=== PATIENT | female | born 1965 | race African-American/Black ===

== ENCOUNTER 2017-12-10 11:25 | Emergency (ER) | payer OTHER ==
[~2017-12-10] VITALS: Ht 165.1 cm; Wt 64.4 kg
[2017-12-10] MEDS ORDERED: ATRIPLA1 TAB ORAL (11:33)
[2017-12-10] MEDS ORDERED: LAMIVUDINE150 MG ORAL (11:33)
[2017-12-10] MEDS ORDERED: VIREAD150 MG PO (11:33)
[2017-12-10 11:40] VITALS: BP 171/90
[2017-12-10 11:50] VITALS: BP 171/90
--- NOTE | 2017-12-10 13:33 | Emergency Room Report ---
History of Present Illness General Chief Complaint: General Complaint Source: Patient Present Illness HPI Patient 52-year-old female who presented for requested adjustment of HIV meds. The patient states she was diagnosed pressure 1 year ago. She denies any current complaints. Patient states that she wanted her viral load check. She denied any fever or weakness. Allergies: Coded Allergies: No Known Allergies (Unverified , 12/10/17) Patient History Past Medical History: see triage record Now: No Reviewed Nursing Documentation: PMH: Agreed; PSxH: Agreed Nursing Documentation-PMH Past Medical History: No Stated History Review of Systems All Other Systems: negative except mentioned in HPI Physical Exam Vital Signs Date Time Temp Pulse Resp B/P (MAP) Pulse Ox O2 Delivery O2 Flow Rate FiO2 12/10/17 11:27 98.2 89 18 171/90 98 Room Air 98.2 General Appearance: well appearing, no apparent distress, alert, GCS 15, non- toxic Head: normocephalic, atraumatic ENT: hearing grossly normal, normal voice Neck: full range of motion, supple Respiratory: no respiratory distress, speaking full sentences Musculoskeletal: no calf tenderness Neurologic: normal gait Psychiatric: mood/affect normal Skin: no rash Medical Decision Making Diagnostic Impression: Primary Impression: HIV disease ER Course The patient presented for the HIV. The patient was advised that she would need to see infectious disease specialist as an outpatient to have HIV medications changed and adjusted. The patient was given outpatient referrals. Last Vital Signs Date Time Temp Pulse Resp B/P (MAP) Pulse Ox O2 Delivery O2 Flow Rate FiO2 12/10/17 11:50 98.2 89 18 171/90 98 Room Air 98.2 Status: improved Disposition: HOME, SELF-CARE Condition: Stable Referrals: NOT CHOSEN IPA/,REFERRING (PCP) Patient Instructions: HIV Antibody Test Additional Instructions: Follow up with infectious disease specialist Westley Antonio MD Dec 10, 2017 13:33
== END 2017-12-10 12:00 | disposition home or self-care (01) ==
LOC: EMR 11:51
DX: B20 Human immunodeficiency virus [HIV] disease (principal)
CPT/HCPCS: 99282

== ENCOUNTER 2019-06-07 13:36 | Emergency (ER) | payer OTHER ==
[~2019-06-07] VITALS: Ht 177.8 cm; Wt 90.7 kg
[~2019-06-07 13:36] MED LIST: ATRIPLA1 TAB ORAL; LAMIVUDINE150 MG ORAL; VIREAD150 MG PO
--- NOTE | 2019-06-07 13:47 | NUR ---
ED Nurse Note: Pt brought in by ambulance for pain and SOB since last night. Pt has not history and takes no meds. TT 40, PA aware. Pt is alerta nd orientedx4, but slow speech due to SOB. Pt set up on monitor.
--- NOTE | 2019-06-07 13:50 | NUR ---
ED Nurse Note: PA aware that RR 39 and pt HR is 120.
--- NOTE | 2019-06-07 14:19 | NUR ---
ED Nurse Note: Pt states she has had CP since last night 1999 L side of chest sharp abnd radiating to L shoulder.
--- NOTE | 2019-06-07 14:19 | Emergency Room Report ---
History of Present Illness General Chief Complaint: General Complaint Source: Patient Present Illness HPI Disclaimer: Please note that this report is being documented using DRAGON technology. This can lead to erroneous entry secondary to incorrect interpretation by the dictating instrument. HPI: 53-year-old female presents for evaluation of chest pain shortness of breath. Symptoms began last night. She was awoken from sleep complaining of left-sided chest pain discomfort associated with shortness of breath. Pain was nonradiating. Notes worsening pain when laying on the right side though while at rest the pain is on the left. No prior history of PR. Denies any other medical issues. Has been isolating at home for the past 2 weeks with her children. No recent travel. Denies fever, chills, cough, vomiting, diarrhea. PMH: HIV PSH: Denies Allergies: Denies Social Hx: Non-smoker Allergies: Coded Allergies: No Known Allergies (Unverified , 12/10/17) COVID-19 Screening Contact w/high risk pt: No Recent Travel to affected area: No Experienced COVID-19 symptoms?: No Nursing Documentation-PMH Past Medical History: No Stated History Review of Systems All Other Systems: negative except mentioned in HPI Physical Exam Vital Signs Date Time Temp Pulse Resp B/P (MAP) Pulse Ox O2 Delivery O2 Flow Rate FiO2 06/07/19 13:30 98.8 100 22 93/65 (74) 98 Room Air General: Awake and alert, anxious appearing HEENT: NC/AT. EOMI. Cardiovascular: Tachycardic S1 and S2 normal. No murmur appreciated Resp: Tachypnea. Normal work of breathing. No cough, wheezing or crackles appreciated Abdomen: Abdomen is soft, nondistended. Nontender Skin: Intact. No abrasions, laceration or rash over the exposed skin MSK: Normal tone and bulk. Moving all extremities. No obvious deformity. Neuro: Awake and alert. Mentating appropriately. Procedures Critical Care Time Critical Care Time Total critical care time: Approximately 45 minutes Due to a high probability of clinically significant, life threatening deterioration, the patient required the highest level of preparedness to intervene emergently and I personally spent this critical care time directly and personally managing the patient. This critical care time included obtaining a history, examining the patient, pulse oximetry, ordering and reviewing studies , ordering treatments, evaluating response to treatment and updating management plan as needed, frequent reassessment and discussion with other providers as well as arranging for ultimate disposition. This critical to care time was performed to assess and manage the high probability of life-threatening deterioration that could result in multiorgan failure. This critical care time is separate from the separately billable procedures and treating other patients. Central Line Central Line : Consent: Emergent Central Line Lumen: triple No Max Barrier Tech Because: emergency insertion Central Line Postion: femoral (R) Complications: none Central Line Post Position: sutured Attempts: One Patient Tolerated: Well Complications: None CPR/Code Blue CPR/Code Blue Narrative See reevaluation section of note for full details. Intubation Intubation : Consent: Emergent Intubation Method: orotracheal Tube Size (cm): 7.5 Medications: Etomidate, Rocuronium Breath Sounds after Intubation: equal Intubation Complications: no complications Attempts: One Complications: None Medical Decision Making Diagnostic Impression: Primary Impression: Suspected 2019 novel coronavirus infection Additional Impressions: Pneumonia Elevated troponin LFT elevation ARF (acute renal failure) ER Course 53-year-old female presents for evaluation of chest pain. Differential includes was not limited to angina, ACS, PE, pneumonia, viral syndrome, COVID- 19 exposure, cardiomyopathy, aortic dissection, pericarditis, GERD, pancreatitis , cholecystitis to name a few. EKG on arrival shows sinus rhythm with inferior Q waves and some T wave inversions but no obvious ST segment changes. Chest x- ray concerning for right lower lobe infiltrate. Based on the patient's presenting signs, symptoms and physical exam findings, the patient has been screened and is suspected to have COVID-19 and swabs are sent. Will start ceftriaxone azithromycin. Patient is not hypoxic there is slightly tachypneic. Will await the remainder labs though I suspect the patient will require admission. Laboratory Tests Test 06/07/19 14:04 06/07/19 15:15 06/07/19 15:30 White Blood Count 17.6 K/UL (4.8-10.8) H Corrected White Blood Count 10.9 K/UL Red Blood Count 4.32 M/UL (4.20-5.40) Hemoglobin 11.4 G/DL (12.0-16.0) L Hematocrit 35.0 % (37.0-47.0) L Mean Corpuscular Volume 81 FL (80-99) Mean Corpuscular Hemoglobin 26.4 PG (27.0-31.0) L Mean Corpuscular Hemoglobin Concent 32.6 G/DL (32.0-36.0) Red Cell Distribution Width 14.8 % (11.6-14.8) Platelet Count 334 K/UL (150-450) Mean Platelet Volume 7.1 FL (6.5-10.1) Neutrophils (%) (Auto) % (45.0-75.0) Lymphocytes (%) (Auto) % (20.0-45.0) Monocytes (%) (Auto) % (1.0-10.0) Eosinophils (%) (Auto) % (0.0-3.0) Basophils (%) (Auto) % (0.0-2.0) Differential Total Cells Counted 100 Neutrophils % (Manual) 84 % (45-75) H Lymphocytes % (Manual) 11 % (20-45) L Monocytes % (Manual) 4 % (1-10) Eosinophils % (Manual) 0 % (0-3) Basophils % (Manual) 0 % (0-2) Band Neutrophils 1 % (0-8) Nucleated Red Blood Cells 60 /100 WBC Platelet Estimate Adequate Platelet Morphology Normal Polychromasia 1+ Anisocytosis 1+ Sodium Level 132 MMOL/L (136-145) L Potassium Level 5.4 MMOL/L (3.5-5.1) H Chloride Level 93 MMOL/L (98-107) L Carbon Dioxide Level 12 MMOL/L (21-32) L Anion Gap 28 mmol/L (5-15) H Blood Urea Nitrogen 157 mg/dL (7-18) H Creatinine 5.3 MG/DL (0.55-1.30) H Estimated Glomerular Filtration Rate 10.3 mL/min (>60) Glucose Level 155 MG/DL (74-106) H Calcium Level 8.6 MG/DL (8.5-10.1) Total Bilirubin 1.3 MG/DL (0.2-1.0) H Direct Bilirubin 0.7 MG/DL (0.0-0.3) H Aspartate Amino Transferase (AST) 175 U/L (15-37) H Alanine Aminotransferase (ALT) 125 U/L (12-78) H Alkaline Phosphatase 210 U/L (46-116) H Troponin I 0.180 ng/mL (0.000-0.056) Pro-B-Type Natriuretic Peptide 87487 pg/mL (0-125) H Total Protein 8.1 G/DL (6.4-8.2) Albumin 2.9 G/DL (3.4-5.0) L Globulin 5.2 g/dL Albumin/Globulin Ratio 0.6 (1.0-2.7) L Activated Partial Thromboplast Time 25 SEC (23-33) D-Dimer 16.26 mg/L FEU (0.00-0.49) H Lactic Acid Level Pending Lipase 382 U/L (73-393) Urine Color Yellow Urine Appearance Cloudy Urine pH 5 (4.5-8.0) Urine Specific [place] 1.025 (1.005-1.035) Urine Protein 2+ (NEGATIVE) H Urine Glucose (UA) Negative (NEGATIVE) Urine Ketones 1+ (NEGATIVE) H Urine Blood 1+ (NEGATIVE) H Urine Nitrite Negative (NEGATIVE) Urine Bilirubin 1+ (NEGATIVE) H Urine Ictotest Negative (NEGATIVE) Urine Urobilinogen 1 MG/DL (0.0-1.0) H Urine Leukocyte Esterase 1+ (NEGATIVE) H Urine RBC 2-4 /HPF (0 - 2) H Urine WBC 5-10 /HPF (0 - 2) H Urine Squamous Epithelial Cells Few /LPF (NONE/OCC) Urine Bacteria Moderate /HPF (NONE) H Urine Hyaline Casts 20-30 /LPF (NONE) H Urine HCG, Qualitative Negative (NEGATIVE) Urine Opiates Screen Negative (NEGATIVE) Urine Barbiturates Screen Negative (NEGATIVE) Phencyclidine (PCP) Screen Negative (NEGATIVE) Urine Amphetamines Screen Negative (NEGATIVE) Urine Benzodiazepines Screen Negative (NEGATIVE) Urine Cocaine Screen Negative (NEGATIVE) Urine Marijuana (THC) Screen Negative (NEGATIVE) Microbiology Date/Time Source Procedure Growth Status 06/07/19 15:15 Nasal Nares - Final Complete 06/07/19 15:15 Nasal Nares - Final Complete EKG Diagnostic Results EKG Time: 14:20 Rate: normal Rhythm: NSR ST Segments: no acute changes Other Impression Sinus rhythm, normal axis, normal intervals, inferior Q waves, inverted T waves lead III, no ST segment changes ASA given to the pt in ED: Yes Rhythm Strip Diag. Results Rhythm Strip Time: 14:20 EP Interpretation: yes Rate: 99 Rhythm: NSR, no PVC's, no ectopy Chest X-Ray Diagnostic Results Chest X-Ray Diagnostic Results : Chest X-Ray Ordered: Yes # of Views/Limited/Complete: 1 View Indication: Shortness of Breath EP Interpretation: Yes Interpretation: no effusion, no pneumothorax, other - Right lower lobe consolidation concerning for pneumonia. Bilateral pulmonary congestion Impression: Other - Right lower lobe consolidation Electronically Signed by: Electronically signed by Dr. Karlo Hung Reevaluation Time: 17:34 Last Vital Signs Date Time Temp Pulse Resp B/P (MAP) Pulse Ox O2 Delivery O2 Flow Rate FiO2 06/07/19 13:30 98.8 100 22 93/65 (74) 98 Room Air Reevaluation Impression Patient's labs showed a significant white count and she was receiving antibiotics. Chemistries showed an elevated troponin, significantly elevated lactic acid, signs of acute kidney failure with a creatinine of 5.3 and a BUN of 157. Potassium elevated at 5.4. Contacted ICU for admission and arranged for surgery to place a dialysis catheter as the patient would require emergent dialysis. During these preparations the patient went into cardiac arrest and after a brief round of CPR and epinephrine pulses were regained. She again had an episode of PEA arrest while intubation was being set up. Airway was successfully secured with 7.5 endotracheal tube and the patient was ventilating well. After multiple rounds of CPR, epinephrine and bicarb pulses were again regained. A right femoral line was placed. Postarrest EKG shows sinus rhythm with inferior Q waves nonspecific T wave changes. Discussed with ICU admitting team. Elevated d-dimer and clinical symptoms were concerning for both COVID-19 infection as well as pulmonary emboli. Had plan to start a heparin drip. Several minutes later the patient went into asystole and another code was called. Multiple rounds of CPR with epinephrine and bicarb. TPA was pushed due to possible PE. No improvement. Due to poor prognosis resuscitative efforts were stopped. Time of was 1730. Daughter was updated by telephone. Disposition: Karlo Hung MD Jun 07, 2019 14:19
[2019-06-07 14:28] VITALS: BP 105/64
[2019-06-07] MEDS ORDERED: Azithromycin 500 MG in NS 275 ML IV ONE (14:30)
[2019-06-07] MEDS ORDERED: LORazepam Inj 2mg/ml 1ml IV ONE (14:30)
[2019-06-07] MEDS ORDERED: cefTRIAXone 1 GM in NS 55 ML IVPB ONE (14:30)
--- NOTE | 2019-06-07 14:35 | NUR ---
HAND-OFF: Report given to Howard Araujo RN.
[2019-06-07 14:40] LABS: HEMOGLOBIN 11.4 G/DL (12.0-16.0); MEAN CORPUSCULAR VOLUME 81 FL (80-99); PLATELET COUNT 334 K/UL (150-450); RED BLOOD COUNT 4.32 M/UL (4.20-5.40); RED CELL DISTRIBUTION WIDTH 14.8 % (11.6-14.8); WHITE BLOOD COUNT 17.6 K/UL (4.8-10.8)
[2019-06-07 14:41] LABS: ANION GAP 28 mmol/L (5-15); BLOOD UREA NITROGEN 157 mg/dL (7-18); CALCIUM 8.6 MG/DL (8.5-10.1); CARBON DIOXIDE 12 MMOL/L (21-32); CHLORIDE 93 MMOL/L (98-107); CREATININE 5.3 MG/DL (0.55-1.30); POTASSIUM 5.4 MMOL/L (3.5-5.1); SODIUM 132 MMOL/L (136-145)
[2019-06-07] MEDS ORDERED: Omnipaque 350 100ml vial INJ PRN (14:45)
[2019-06-07 14:50] LABS: ALANINE AMINOTRANSFERASE 125 U/L (12-78); ALBUMIN 2.9 G/DL (3.4-5.0); ALBUMIN/GLOBULIN RATIO 0.6 (1.0-2.7); ALKALINE PHOSPHATASE 210 U/L (46-116); ASPARTATE AMINO TRANSFERASE 175 U/L (15-37); BILIRUBIN,TOTAL 1.3 MG/DL (0.2-1.0)
[2019-06-07 14:51] LABS: BILIRUBIN,DIRECT 0.7 MG/DL (0.0-0.3)
--- NOTE | 2019-06-07 14:57 | Diagnostic Imaging Report ---
Indication: Shortness of breath Technique: One view of the chest Comparison: none Findings: The heart is enlarged. Mild interstitial congestion is seen in the mid and lower lungs. There is questionable background hazy mid and lower lung parenchymal opacity, although this may be in part an artifact of overlying soft tissue. More focal airspace disease is seen at the right lung base. The pleural spaces are clear. Impression: Cardiomegaly Mild interstitial congestion, right basilar patchy infiltrate, and equivocal generalized mid to lower lung hazy opacity. Findings may represent pulmonary edema, versus pneumonia, versus multiple other possibilities
[2019-06-07 16:07] LABS: APPEARANCE,URINE CLOUDY; BILIRUBIN, URINE 1+ (NEGATIVE); GLUCOSE, URINE (UA) NEGATIVE (NEGATIVE); KETONES,URINE 1+ (NEGATIVE); LEUKOCYTE ESTERASE ,URINE 1+ (NEGATIVE); NITRITE,URINE NEGATIVE (NEGATIVE); PH,URINE 5 (4.5-8.0); PROTEIN,URINE 2+ (NEGATIVE); UROBILINOGEN,URINE 1 MG/DL (0.0-1.0)
[2019-06-07 16:11] LABS: COLOR,URINE YELLOW
--- NOTE | 2019-06-07 16:16 | Consultation ---
History of Present Illness General Chief Complaint: General Complaint Present Illness HPI This is a 53-year-old female who presents [facility] emergency department complaining of shortness of breath and chest pain beginning late last night. In emergency department patient went into respiratory insufficiency and cardiovascular arrest. Was intubated and resuscitated ACLS. Surgery was called to evaluate and assist with care given patient's severely septic renal insufficiency requiring urgent hemodialysis. Patient without history of hemodialysis and access necessary. I emergently went to the emergency department see the patient and began to prepare for catheter placement. In preparation for access but prior to initiation of even prepping and draping patient had another cardiovascular event and we immediately began ACLS. I assisted with the ACLS which was guided by the emergency department physician who was soon after present and after multiple rounds of resuscitation fortunately patient did not make it. Allergies: Coded Allergies: No Known Allergies (Unverified , 12/10/17) Medication History Scheduled Efavirenz/Emtricitab/Tenofovir (Atripla Tablet), 1 TAB ORAL DAILY, (Reported) Lamivudine (Lamivudine), 150 MG ORAL TWICE A DAY, (Reported) Miscellaneous Medications Tenofovir Disoproxil Fumarate (Viread), 150 MG PO, (Reported) Patient History Healthcare decision maker Resuscitation status Advanced Directive on File Physical Exam Last 24 Hour Vital Signs Date Time Temp Pulse Resp B/P (MAP) Pulse Ox O2 Delivery O2 Flow Rate FiO2 06/07/19 14:28 80 21 Room Air 98 06/07/19 14:28 98.8 105 22 105/64 98 Room Air 06/07/19 13:30 98.8 100 22 93/65 (74) 98 Room Air Laboratory Tests Test 06/07/19 14:04 06/07/19 15:15 06/07/19 15:30 White Blood Count 17.6 K/UL (4.8-10.8) H Corrected White Blood Count 10.9 K/UL Red Blood Count 4.32 M/UL (4.20-5.40) Hemoglobin 11.4 G/DL (12.0-16.0) L Hematocrit 35.0 % (37.0-47.0) L Mean Corpuscular Volume 81 FL (80-99) Mean Corpuscular Hemoglobin 26.4 PG (27.0-31.0) L Mean Corpuscular Hemoglobin Concent 32.6 G/DL (32.0-36.0) Red Cell Distribution Width 14.8 % (11.6-14.8) Platelet Count 334 K/UL (150-450) Mean Platelet Volume 7.1 FL (6.5-10.1) Neutrophils (%) (Auto) % (45.0-75.0) Lymphocytes (%) (Auto) % (20.0-45.0) Monocytes (%) (Auto) % (1.0-10.0) Eosinophils (%) (Auto) % (0.0-3.0) Basophils (%) (Auto) % (0.0-2.0) Differential Total Cells Counted 100 Neutrophils % (Manual) 84 % (45-75) H Lymphocytes % (Manual) 11 % (20-45) L Monocytes % (Manual) 4 % (1-10) Eosinophils % (Manual) 0 % (0-3) Basophils % (Manual) 0 % (0-2) Band Neutrophils 1 % (0-8) Nucleated Red Blood Cells 60 /100 WBC Platelet Estimate Adequate Platelet Morphology Normal Polychromasia 1+ Anisocytosis 1+ Sodium Level 132 MMOL/L (136-145) L Potassium Level 5.4 MMOL/L (3.5-5.1) H Chloride Level 93 MMOL/L (98-107) L Carbon Dioxide Level 12 MMOL/L (21-32) L Anion Gap 28 mmol/L (5-15) H Blood Urea Nitrogen 157 mg/dL (7-18) H Creatinine 5.3 MG/DL (0.55-1.30) H Estimat Glomerular Filtration Rate 10.3 mL/min (>60) Glucose Level 155 MG/DL (74-106) H Calcium Level 8.6 MG/DL (8.5-10.1) Total Bilirubin 1.3 MG/DL (0.2-1.0) H Direct Bilirubin 0.7 MG/DL (0.0-0.3) H Aspartate Amino Transf (AST/SGOT) 175 U/L (15-37) H Alanine Aminotransferase (ALT/SGPT) 125 U/L (12-78) H Alkaline Phosphatase 210 U/L (46-116) H Troponin I 0.180 ng/mL (0.000-0.056) Pro-B-Type Natriuretic Peptide 35626 pg/mL (0-125) H Total Protein 8.1 G/DL (6.4-8.2) Albumin 2.9 G/DL (3.4-5.0) L Globulin 5.2 g/dL Albumin/Globulin Ratio 0.6 (1.0-2.7) L D-Dimer Pending Lactic Acid Level Pending Lipase Pending Urine Color Yellow Urine Appearance Cloudy Urine pH 5 (4.5-8.0) Urine Specific [place] 1.025 (1.005-1.035) Urine Protein 2+ (NEGATIVE) H Urine Glucose (UA) Negative (NEGATIVE) Urine Ketones 1+ (NEGATIVE) H Urine Blood 1+ (NEGATIVE) H Urine Nitrite Negative (NEGATIVE) Urine Bilirubin 1+ (NEGATIVE) H Urine Ictotest Pending Urine Urobilinogen 1 MG/DL (0.0-1.0) H Urine Leukocyte Esterase 1+ (NEGATIVE) H Urine RBC Pending Urine WBC Pending Urine Squamous Epithelial Cells Pending Urine Bacteria Pending Urine HCG, Qualitative Negative (NEGATIVE) Urine Opiates Screen Pending Urine Barbiturates Screen Pending Phencyclidine (PCP) Screen Pending Urine Amphetamines Screen Pending Urine Benzodiazepines Screen Pending Urine Cocaine Screen Pending Urine Marijuana (THC) Screen Pending Height (Feet): 5 Height (Inches): 10.00 Weight (Pounds): 200 Assessment/Plan Diagnosis [place]: #Acute renal failure - concerns for ATN in the setting of sepsis #Hyperkalemia due to renal failure #lactic acidosis #lactic acidosis #Sepsis likely due to pneumonia r/o COVID #Hypoxemic respiratory failure r/o COVID #HIV - s/p intubation in the ED - STAT HD tonight if BP allows - rectal kayexalate - stat BMP - consider starting bicarb drip pending repeat BMP - antibiotics per ID - vent management per Diego Ferrara M.D. Jun 07, 2019 16:16
[2019-06-07] MEDS ORDERED: Heparin 5000 units/ml inj IV ONE (16:30)
[2019-06-07] MEDS ORDERED: Heparin 25,000u/D5W 500ml 500 ML IV SCH (16:30)
[2019-06-07] MEDS ORDERED: Etomidate 40mg/20ml Inj IV ONE (16:30)
[2019-06-07] MEDS ORDERED: Rocuronium Bromide 50mg/5ml Inj IV ONE (16:30)
[2019-06-07] MEDS ORDERED: Lidocaine 2% 100mg/5ml Carp ONE (16:41)
[2019-06-07] MEDS ORDERED: Atropine Inj 1mg/10ml Syr ONE (16:41)
[2019-06-07] MEDS ORDERED: Sodium Bicarbonate 50ml Carp IV ONE (17:00)
[2019-06-07] MEDS ORDERED: Sodium Bicarbonate 100 ML in D5W 1000ml 1,000 ML IV SCH (17:00)
[2019-06-07] MEDS ORDERED: Sodium Polystyrene Sulfonate Enema RECTAL ONE (17:00)
[2019-06-07] MEDS ORDERED: Heparin 25,000u/D5W 500ml 500 ML IV ONE (17:08)
[2019-06-07] MEDS ORDERED: Alteplase 100mg Inj IV ONE (18:00)
--- NOTE | 2019-06-07 18:02 | Consultation ---
History of Present Illness General Date patient seen: Jun 07, 2019 Chief Complaint: General Complaint Present Illness HPI This is a 53-year-old female who presents [facility] emergency department complaining of shortness of breath and chest pain beginning late last night. In emergency department patient went into respiratory insufficiency and cardiovascular arrest. Was intubated and resuscitated ACLS. Surgery was called to evaluate and assist with care given patient's severely septic renal insufficiency requiring urgent hemodialysis. Patient without history of hemodialysis and access necessary. I emergently went to the emergency department see the patient and began to prepare for catheter placement. In preparation for access but prior to initiation of even prepping and draping patient had another cardiovascular event and we immediately began ACLS. I assisted with the ACLS which was guided by the emergency department physician who was soon after present and after multiple rounds of resuscitation fortunately patient did not make it. Allergies: Coded Allergies: No Known Allergies (Unverified , 12/10/17) Medication History Scheduled Efavirenz/Emtricitab/Tenofovir (Atripla Tablet), 1 TAB ORAL DAILY, (Reported) Lamivudine (Lamivudine), 150 MG ORAL TWICE A DAY, (Reported) Miscellaneous Medications Tenofovir Disoproxil Fumarate (Viread), 150 MG PO, (Reported) Patient History Limited by: medical condition History Provided By: Medical Record, PMD Healthcare decision maker Resuscitation status Advanced Directive on File Past Medical/Surgical History Past Medical/Surgical History: (1) HIV disease (2) Pneumonia (3) ARF (acute renal failure) (4) Elevated troponin (5) LFT elevation (6) Suspected 2019 novel coronavirus infection Review of Systems ROS Narrative cannot obtain given medical condition Physical Exam General Appearance: severe distress Lines, tubes and drains: central line HEENT: normocephalic Neck: normal inspection Respiratory/Chest: respiratory distress Cardiovascular/Chest: tachycardia Abdomen: soft, no organomegaly, no mass Extremities: normal inspection, slow capillary refill Skin Exam: normal pigmentation, warm/dry Neurologic: unresponsiveness Last 24 Hour Vital Signs Date Time Temp Pulse Resp B/P (MAP) Pulse Ox O2 Delivery O2 Flow Rate FiO2 06/07/19 14:28 80 21 Room Air 98 06/07/19 14:28 98.8 105 22 105/64 98 Room Air 06/07/19 13:30 98.8 100 22 93/65 (74) 98 Room Air Laboratory Tests Test 06/07/19 14:04 06/07/19 15:15 06/07/19 15:30 06/07/19 16:30 White Blood Count 17.6 K/UL (4.8-10.8) H Corrected White Blood Count 10.9 K/UL Red Blood Count 4.32 M/UL (4.20-5.40) Hemoglobin 11.4 G/DL (12.0-16.0) L Hematocrit 35.0 % (37.0-47.0) L Mean Corpuscular Volume 81 FL (80-99) Mean Corpuscular Hemoglobin 26.4 PG (27.0-31.0) L Mean Corpuscular Hemoglobin Concent 32.6 G/DL (32.0-36.0) Red Cell Distribution Width 14.8 % (11.6-14.8) Platelet Count 334 K/UL (150-450) Mean Platelet Volume 7.1 FL (6.5-10.1) Neutrophils (%) (Auto) % (45.0-75.0) Lymphocytes (%) (Auto) % (20.0-45.0) Monocytes (%) (Auto) % (1.0-10.0) Eosinophils (%) (Auto) % (0.0-3.0) Basophils (%) (Auto) % (0.0-2.0) Differential Total Cells Counted 100 Neutrophils % (Manual) 84 % (45-75) H Lymphocytes % (Manual) 11 % (20-45) L Monocytes % (Manual) 4 % (1-10) Eosinophils % (Manual) 0 % (0-3) Basophils % (Manual) 0 % (0-2) Band Neutrophils 1 % (0-8) Nucleated Red Blood Cells 60 /100 WBC Platelet Estimate Adequate Platelet Morphology Normal Polychromasia 1+ Anisocytosis 1+ Sodium Level 132 MMOL/L (136-145) L Potassium Level 5.4 MMOL/L (3.5-5.1) H Chloride Level 93 MMOL/L (98-107) L Carbon Dioxide Level 12 MMOL/L (21-32) L Anion Gap 28 mmol/L (5-15) H Blood Urea Nitrogen 157 mg/dL (7-18) H Creatinine 5.3 MG/DL (0.55-1.30) H Estimat Glomerular Filtration Rate 10.3 mL/min (>60) Glucose Level 155 MG/DL (74-106) H Calcium Level 8.6 MG/DL (8.5-10.1) Total Bilirubin 1.3 MG/DL (0.2-1.0) H Direct Bilirubin 0.7 MG/DL (0.0-0.3) H Aspartate Amino Transf (AST/SGOT) 175 U/L (15-37) H Alanine Aminotransferase (ALT/SGPT) 125 U/L (12-78) H Alkaline Phosphatase 210 U/L (46-116) H Troponin I 0.180 ng/mL (0.000-0.056) Pro-B-Type Natriuretic Peptide 26558 pg/mL (0-125) H Total Protein 8.1 G/DL (6.4-8.2) Albumin 2.9 G/DL (3.4-5.0) L Globulin 5.2 g/dL Albumin/Globulin Ratio 0.6 (1.0-2.7) L Activated Partial Thromboplast Time 25 SEC (23-33) D-Dimer 16.26 mg/L FEU (0.00-0.49) H Lactic Acid Level 9.70 mmol/L (0.4-2.0) H Pending Lipase 382 U/L (73-393) Urine Color Yellow Urine Appearance Cloudy Urine pH 5 (4.5-8.0) Urine Specific Gould 1.025 (1.005-1.035) Urine Protein 2+ (NEGATIVE) H Urine Glucose (UA) Negative (NEGATIVE) Urine Ketones 1+ (NEGATIVE) H Urine Blood 1+ (NEGATIVE) H Urine Nitrite Negative (NEGATIVE) Urine Bilirubin 1+ (NEGATIVE) H Urine Ictotest Negative (NEGATIVE) Urine Urobilinogen 1 MG/DL (0.0-1.0) H Urine Leukocyte Esterase 1+ (NEGATIVE) H Urine RBC 2-4 /HPF (0 - 2) H Urine WBC 5-10 /HPF (0 - 2) H Urine Squamous Epithelial Cells Few /LPF (NONE/OCC) Urine Bacteria Moderate /HPF (NONE) H Urine Hyaline Casts 20-30 /LPF (NONE) H Urine HCG, Qualitative Negative (NEGATIVE) Urine Opiates Screen Negative (NEGATIVE) Urine Barbiturates Screen Negative (NEGATIVE) Phencyclidine (PCP) Screen Negative (NEGATIVE) Urine Amphetamines Screen Negative (NEGATIVE) Urine Benzodiazepines Screen Negative (NEGATIVE) Urine Cocaine Screen Negative (NEGATIVE) Urine Marijuana (THC) Screen Negative (NEGATIVE) Microbiology Date/Time Source Procedure Growth Status 06/07/19 15:15 Nasal Nares - Final Complete 06/07/19 15:15 Nasal Nares - Final Complete Height (Feet): 5 Height (Inches): 10.00 Weight (Pounds): 200 Medications Current Medications Medications (Trade) Dose Ordered Sig/Abdi Route PRN Reason Start Time Stop Time Status Last Admin Dose Admin Heparin Sodium/ Dextrose 500 ml @ 21.772 mls/ hr ADJUST PER PROTOCOL IV 06/07/19 16:30 07/07/19 16:29 Sodium Bicarbonate 100 ml/Dextrose 1,100 ml @ 100 mls/hr Q11H IV 06/07/19 17:00 07/07/19 16:59 Sodium Polystyrene Sulfonate (Kayexalate Enema) 45 gm ONCE ONCE RECTAL 06/07/19 17:00 06/07/19 17:01 UNV Sodium Bicarbonate (Sodium Bicarbonate) 100 ml ONCE ONCE IV 06/07/19 17:00 06/07/19 17:01 UNV Assessment/Plan Problem List: (1) Suspected 2019 novel coronavirus infection ICD Codes: R68.89 - Other general symptoms and signs SNOMED: [id number] (2) Severe sepsis Assessment & Plan: Patient with leukocytosis lactic acidosis elevated d-dimer elevated abnormal labs. Vasculitis likely PE CO VID unknown at this time high likelihood Unfortunately cardiovascular arrest prior to any significant intervention. Patient has been in the emergency department. ACLS performed x3 with last episode unable to resuscitate patient. Thank you for let me participate in patient's care ICD Codes: A41.9 - Sepsis, unspecified organism; R65.20 - Severe sepsis without septic shock SNOMED: [id number] Nicholas Scott Jun 07, 2019 18:02
--- NOTE | 2019-06-07 18:35 | NUR ---
ED Nurse Note: 8- CALLED [facility], SPOKE WITH JORDYN, CASE NUMBER IS [id number] 1823- CALLED MECHANISM ASSEMBLER, NATHANIEL CAMP IT IS A MECHANISM ASSEMBLER CASE BECAUSE PT. HAS NO PMD, CASE NUMBER IS [id number] Addendum: 06/07/19 at 1911 by [facility] ED Nurse Note: RECEIVED A NEW CALL FROM GET[facility], NEW CASE NUMBER GIVEN [id number] Addendum: 06/07/19 at 1915 by [facility] ED Nurse Note: PT. IS NOT A [facility] [employer]
--- NOTE | 2019-06-07 20:51 | Emergency Room Report ---
Physical Exam Vital Signs Date Time Temp Pulse Resp B/P (MAP) Pulse Ox O2 Delivery O2 Flow Rate FiO2 06/07/19 13:30 98.8 100 22 93/65 (74) 98 Room Air 06/07/19 14:28 98 Medical Decision Making Diagnostic Impression: Primary Impression: Suspected 2019 novel coronavirus infection Additional Impressions: LFT elevation ARF (acute renal failure) Elevated troponin Pneumonia ER Course I was called into this patient's room due to patient coding. CPR was started prior to my arrival. Patient was at asystole on arrival. CPR was resumed, and 2 rounds of epinephrine were given. Patient was successfully brought back, 2+ pulses. However did not communicate. I went in the room with patient nurse, Lizbet, until my supervising physician Dr. Hung arrived. Last Vital Signs Date Time Temp Pulse Resp B/P (MAP) Pulse Ox O2 Delivery O2 Flow Rate FiO2 06/07/19 14:28 80 21 Room Air 98 06/07/19 14:28 98.8 105/64 98 Disposition: Referrals: NOT CHOSEN IPA/,REFERRING (PCP) Bess Segovia Jun 07, 2019 20:51
== END 2019-06-07 17:25 | disposition expired ==
LOC: EDBD 13:36 → EDBEDREQ 14:36 → EDBEDREQSVC 14:48 → EMR 14:56 → EDBEDREQSVC 16:14 → EDBEDREQ 16:14 → EMR 17:25
DX: A41.9 Sepsis, unspecified organism (principal); R65.20 Severe sepsis without septic shock; J18.9 Pneumonia, unspecified organism; R79.89 Other specified abnormal findings of blood chemistry; R94.5 Abnormal results of liver function studies; N17.9 Acute kidney failure, unspecified; B20 Human immunodeficiency virus [HIV] disease; R00.0 Tachycardia, unspecified; D72.829 Elevated white blood cell count, unspecified; E87.5 Hyperkalemia; E87.2 Acidosis; J96.91 Respiratory failure, unspecified with hypoxia; Z03.818 Encounter for observation for suspected exposure to other biological agents ruled out
CPT/HCPCS: 31500; 36415; 36556; 36600; 71045; 80053; 80307; 81001; 81025; 82248; 82803; 83605; 83690; 83880; 84484; 85007; 85025; 85379; 85730; 86710; 87040; 87086; 92950; 93005; 96361; 96365; 96367; 96375; 99291; J0171; J0456; J0696; J1644; J2997; J7030; J7050; U0002; 87635